=== PATIENT | male | born 1995 | race Caucasian/White ===

== ENCOUNTER 2018-05-18 20:01 | Emergency (ER) | payer OTHER ==
[~2018-05-18] VITALS: Ht 177.8 cm; Wt 97.5 kg
[2018-05-18 20:21] VITALS: BP 127/71
[2018-05-18] MEDS ORDERED: IBUPROFEN600 MG ORAL (21:54)
[2018-05-18 22:38] VITALS: BP 125/75
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
== END 2018-05-18 22:00 | disposition home or self-care (01) ==
LOC: EMR 21:02
DX: S09.90XA Unspecified injury of head, initial encounter (principal); M54.2 Cervicalgia; R51 Headache; V49.3XXA Car occupant (driver) (passenger) injured in unspecified nontraffic accident, initial encounter; W22.8XXA Striking against or struck by other objects, initial encounter; Y93.89 Activity, other specified; Y99.8 Other external cause status; Y92.488 Other paved roadways as the place of occurrence of the external cause
CPT/HCPCS: 70450; 72125; 99284